=== PATIENT | female | born 1965 | race Caucasian/White ===

== ENCOUNTER 2019-12-12 00:08 | Outpatient (CLI) | payer OTHER, SELFPAY ==
[2019-12-12 19:29] LABS: SARS-CoV-2 RNA PCR Negative
== END 2019-12-12 00:09 | disposition home or self-care (01) ==
LOC: ANHCOVIDDT 00:09
PROVIDERS: PCP Family Medicine Sports Medicine; Visit Provider Internal Medicine Gastroenterology
DX: Z01.812 Encounter for preprocedural laboratory examination (principal); Z20.828 Contact with and (suspected) exposure to other viral communicable diseases
CPT/HCPCS: 87635; C9803; U0003

== ENCOUNTER 2019-12-15 00:47 | Day surgery (SDC) | payer OTHER, SELFPAY ==
[2019-11-12 14:15] VITALS: BMI 25.4
[2019-12-15 06:50] VITALS: BP 126/81; PULSE 90; RESP 20; TEMP 36.9; O2SAT 99
[2019-12-15] MEDS: LACTATED RINGERS 1,000 ML 150 ML IV CONT (06:59)
--- NOTE | 2019-12-15 07:15 | WPDANESEPPF ---
Anes - Initial Pre Proc Eval Procedure: Operation Date: 12/15/19 08:00 Proposed Procedures p Screening Colonoscopy - Jonathan Buchanan MD Date/Time: 12/15/19 07:15 Surgeon: Jonathan Buchanan MD Pre Op Diagnosis: Neoplasm Screening Patient Data Age: 54 Gender: F Height: 5 ft 3 in Weight: 63.3 kg Last Vital Signs Temp 98.4 F 12/15/19 06:50 Pulse 90 12/15/19 06:50 Resp 20 12/15/19 06:50 BP 126/81 12/15/19 06:50 Pulse Ox 99 12/15/19 06:50 Allergies Allergy/AdvReac Type Severity Reaction Status Date / Time No Known Allergies Allergy Unknown Verified 12/15/19 06:48 Home Medications Medication Instructions Recorded Confirmed Type hydrochlorothiazide 12.5 mg PO DAILY 11/12/19 11/12/19 History lisinopril 10 mg PO DAILY 11/12/19 11/12/19 History psyllium husk (with sugar) [Daily 1 tbsp PO DAILY 11/12/19 11/12/19 History Fiber (psyllium-sucrose)] Patient hx anesthesia problems: none Family hx anesthesia problems: none PMFSH Past Medical History Medical History (Updated 12/15/19 @ 07:15 by Bandar Lynch MD) Hypertension Family History Family History (Updated 12/17/13 @ 07:13 by DOCTOR UNKNOWN) Father Hypertension Cerebrovascular accident Social History Social History Smoking status: Never smoker Alcohol intake: current Anes - Eval Final PreProcedure Day of Procedure 12/15/19 07:15 Patient weight: normal Heart: regular rate and rhythm Lungs: clear to auscultation Airway: Mallampati scale class II Neurological: alert and oriented Last oral intake: >/= 8 hours ASA classification: II Emergent: no Anesthetic plan: proceed Anesthesia type and monitoring: general GIVS and standard monitoring Informed Consent: The patient's anesthetic plan and its attendant risks and benefits were discussed with the patient/family/POA. Questions were solicited and answers provided to the satisfaction of the patient/family/POA.
--- NOTE | 2019-12-15 07:48 | PM.HPGS ---
History of Present Illness History of Present Illness Consent: Risks, benefits, and alternatives have been discussed and questions answered. Patient agrees to proceed with procedure. Chief complaint: Neoplasm Screening Narrative: Shahida Pena is a 54 year old female here for screening colonoscopy, last one about 10 years ago Review of Systems Constitutional: Constitutional: Denies headache(s) and Denies weakness Eyes: Eyes: Denies blurry vision ENT: Reports Normal hearing present, Denies headache(s) and Denies neck pain Cardiovascular: Cardiovascular: Denies chest pain and Denies dyspnea Respiratory: Respiratory: Denies dyspnea Gastrointestinal: Gastrointestinal: Reports no additional gastrointestinal complaints Genitourinary: Genitourinary: Denies dysuria Musculoskeletal: Musculoskeletal: Denies neck pain Integumentary/Breasts: Skin/Breast: Denies dry skin Neurologic: Reports Normal hearing present, Denies headache(s) and Denies weakness Psychiatric: Psychiatric: Denies anxiety Endocrine: Endocrine: Denies change in body appearance Hematologic/Lymphatic: Hematologic/Lymphatic: Denies easy bleeding Allergic/Immunologic: Allergic/Immunologic: Denies urticaria PMFSH Past Medical History Medical History (Updated 12/15/19 @ 07:48 by Jonathan Buchanan MD) Colon cancer screening Hypertension Family History Family History (Updated 12/17/13 @ 07:13 by DOCTOR UNKNOWN) Father Hypertension Cerebrovascular accident Social History Social History Smoking status: Never smoker Alcohol intake: current Meds Home Medications and Allergies Home Medications Medication Instructions Recorded Confirmed Type hydrochlorothiazide 12.5 mg PO DAILY 11/12/19 11/12/19 History lisinopril 10 mg PO DAILY 11/12/19 11/12/19 History psyllium husk (with sugar) [Daily 1 tbsp PO DAILY 11/12/19 11/12/19 History Fiber (psyllium-sucrose)] Allergies Allergy/AdvReac Type Severity Reaction Status Date / Time No Known Allergies Allergy Unknown Verified 12/15/19 06:48 Vital Signs Vital Signs - 24 hr 12/15/19 06:50 Temperature 98.4 F Pulse Rate 90 Respiratory Rate 20 Blood Pressure 126/81 Pulse Oximetry 99 Exam Const: General: comfortable and no acute distress HENMT: General nose exam: Normal nares present Eyes: General: appearance normal, both eyes and all related structures Neck: Neck: no JVD Resp: Auscultation: clear to auscultation bilaterally Cardio: Rate: regular rate Rhythm: regular rhythm GI: Inspection: non-distended GI Palp: Yes Soft to palpation Skin: General skin exam: normal color Neuro: General: gait normal Speech: normal speech Extrem: General: normal to inspection Psych: Mental Status: mental status grossly normal Assessment and Plan Assessment and plan (1) Colon cancer screening: Code(s): Z12.11 - Encounter for screening for malignant neoplasm of colon Status: Acute Assessment and Plan: will proceed with colonoscopy (2) Hypertension: Code(s): I10 - Essential (primary) hypertension Status: Acute
[2019-12-15 08:08] VITALS: BP 80/47; PULSE 76; RESP 15; O2SAT 97
[2019-12-15 08:18] VITALS: BP 80/49; PULSE 78; RESP 19; O2SAT 98
[2019-12-15 08:21] VITALS: BP 102/68; PULSE 70; RESP 14; O2SAT 98
== END 2019-12-15 08:37 | disposition home or self-care (01) ==
PROVIDERS: PCP Family Medicine Sports Medicine; Visit Provider Internal Medicine Gastroenterology
PROC: 0DJD8ZZ Inspection of Lower Intestinal Tract, Via Natural or Artificial Opening Endoscopic (ICD-10-PCS; CPT 45378; principal; 2019-12-15 08:00)
DX: Z12.11 Encounter for screening for malignant neoplasm of colon (principal); K57.30 Diverticulosis of large intestine without perforation or abscess without bleeding; K64.8 Other hemorrhoids; I10 Essential (primary) hypertension
CPT/HCPCS: 45378; J2704; J7120

== ENCOUNTER 2022-03-26 11:00 | Outpatient (CLI) | payer OTHER, SELFPAY ==
--- NOTE | ~2022-03-26 | MM_ITS ---
EXAMINATION: MM screening [facility] BI w oneil HISTORY: Screening mammogram TECHNIQUE: Craniocaudal and mediolateral oblique 3-D tomosynthesis images were obtained and synthetic 2-D images were generated. CAD analysis was submitted and interpreted. COMPARISON: 02/04/2019, 06/08/2016, 02/22/2014 BREAST PARENCHYMAL COMPOSITION: There are scattered areas of fibroglandular density. FINDINGS: No suspicious mass, calcification, or architectural distortion are identified in either yan ast to suggest malignancy. There has been no suspicious interval change. IMPRESSION: 1. No mammographic evidence of malignancy. 2. Recommend routine screening mammography in one year. BI-RADS Category 1: Negative Reviewed, dictated and finalized at location A. HAT LINUX ADMINISTRATOR
== END 2022-03-26 11:01 | disposition home or self-care (01) ==
PROVIDERS: PCP Family Medicine Sports Medicine; Visit Provider Family Medicine Sports Medicine
DX: Z12.31 Encounter for screening mammogram for malignant neoplasm of breast (principal)
CPT/HCPCS: 77063; 77067

== ENCOUNTER 2023-07-12 08:15 | Outpatient (CLI) | payer OTHER, SELFPAY ==
--- NOTE | ~2023-07-12 | MM_ITS ---
EXAMINATION: MM screening [facility] w one[facility] HISTORY: Screening TECHNIQUE: Craniocaudal and mediolateral oblique 3-D tomosynthesis images were obtained and synthetic 2-D images were generated. CAD analysis was submitted and interpreted. COMPARISON: Comparison to multiple prior studies sequentially, with oldest reviewed study dated 06/08. BREAST PARENCHYMAL COMPOSITION: Not dense: There are scattered areas of fibroglandular density. FINDINGS: There is no evidence of suspicious mass, calcification, or architectural distortion to sugg est malignancy in either breast. There has been no suspicious interval change. IMPRESSION: 1. No mammographic evidence of malignancy. 2. Recommend routine screening mammography in one year. BI-RADS Category 1: Negative Reviewed, dictated and finalized at location A.
== END 2023-07-12 08:16 | disposition home or self-care (01) ==
LOC: ANHIMG 08:17
PROVIDERS: PCP Family Medicine; Visit Provider Nurse Practitioner Obstetrics & Gynecology
DX: Z12.31 Encounter for screening mammogram for malignant neoplasm of breast (principal)
CPT/HCPCS: 77063; 77067

== ENCOUNTER 2024-02-12 13:25 | Outpatient (CLI) | payer OTHER, SELFPAY ==
--- NOTE | 2024-02-12 13:30 | ECG_ITS ---
Test Date: 2024-02-12 14:03:24 Measurements Intervals [place] Rate: 97 P: 65 SD: 159 QRS: 39 QRSD: 101 T: 5 QT: 344 QTc: 438 Interpretive Statements SINUS RHYTHM POSSIBLE LEFT ATRIAL ENLARGEMENT [-0.1mV P WAVE IN V1/V2] INCOMPLETE RIGHT BUNDLE BRANCH BLOCK [90+ ms QRS DURATION, TERMINAL R IN V1/V2, 40+ ms S IN I/aVL/V4/V5/V6] MODERATE T-WAVE ABNORMALITY, CONSIDER ANTEROLATERAL ISCHEMIA [-0.1+ mV T WAVE IN V3-V6] No previous ECG available for comparison Electronically Signed On 02-13-2024 09:35:06 CDT by Guido Barrow M.D.
== END 2024-02-12 13:26 | disposition home or self-care (01) ==
PROVIDERS: PCP Family Medicine; Visit Provider Podiatrist Foot & Ankle Surgery
DX: Z01.810 Encounter for preprocedural cardiovascular examination (principal); R94.31 Abnormal electrocardiogram [ECG] [EKG]; I10 Essential (primary) hypertension
CPT/HCPCS: 93005

== ENCOUNTER 2024-02-14 01:07 | Day surgery (SDC) | payer OTHER, SELFPAY ==
[2024-02-07 13:10] VITALS: BMI 25.7
--- NOTE | 2024-02-07 13:15 | PC.NURSE ---
Report to the Outpatient Waiting Room, entrance under the green pavilion located off [facility], at time _0800_ on date _[id number]_. Planned Procedure Time: _1000_.? Time changes happen often and if your time is changed the preop area will call you the afternoon before. - You and your visitor will be asked to self-screen and do not enter if you have any COVID symptoms. Please call surgeon if you need to reschedule. - A mask is optional within the hospital at this time. Patients may have clear liquids (water, carbonated beverages, clear teas, apple juice) until 3 hours prior to surgery with a maximum of 20 ounces. - No food from midnight until time of surgery and no smoking Take only the following medications with a SIP of water on the morning of surgery: ___None____ DO NOT STOP ANY OF YOUR OTHER PRESCRIPTION MEDICATIONS PRIOR TO SURGERY EXCEPT THE FOLLOWING Medications to discontinue per physician ___None Please no make-up, nail telugu, hairspray, perfume, deodorant, or body powder the day of surgery.? No jewelry (including any body piercings) or valuables the day of surgery, leave them at home.? Please take a shower or bath the night before, or the morning of, surgery with an antibacterial soap.? Wear comfortable, loose fitting clothing.? - Jewelry must be removed prior to entering the operating room.? Rings and piercings that are not removed may be cut off. - The hospital will not accept responsibility for valuables.? - Please leave all valuables, including medications, at home the day of surgery. If you are going home after surgery, a licensed garbage collector driver must drive you home.? - NO public transportation without another adult if you receive anesthesia. - We recommend that an adult stay with you for 24 hours following discharge. - We also recommend that you do not drive, make important decision, drink alcoholic beverages, or take any drugs that were not prescribed by your health care provider for at least 24 hours after your discharge time. Follow any additional instructions given to you from your surgeon. Telephone instructions given to _Shahida___and asked if any additional questions and then verbalized understanding. Patient advised to call surgeon office or pre surgery nurse liaison [phone] if any additional questions.
[2024-02-14] VITALS (9 sets, daily range): BP systolic 128–149; BP diastolic 81–91; PULSE 69–87; RESP 14–15; TEMP 36.3–36.8; O2SAT 99–100
--- NOTE | ~2024-02-14 | XR_ITS ---
XR surgery orthopedic Indication: Right first metatarsophalangeal joint arthrodesis TECHNIQUE: Fluoroscopy used during Right first metatarsophalangeal joint arthrodesis performed by Dr You [Pranav Turk Jr., BEV] on 02/14/2024. 17 seconds of fluoroscopy with 2 fluoroscopic images cap tured. FINDINGS: Correlate with procedure note. IMPRESSION: Fluoroscopy used during Right first metatarsophalangeal joint arthrodesis. Reviewed, dictated and finalized at location B. IMPRESSION: Fluoroscopy used during Right first metatarsophalangeal joint arthr odesis.
--- NOTE | 2024-02-14 07:15 | WPDHPUPDATE1 ---
History and Physical Update Update Date/Time: 02/14/24 07:15 History and Physical has been reviewed, including an updated exam of the patient. There are NO changes in the patient's condition. Risks, benefits, and alternatives have been discussed and questions answered. Patient agrees to proceed with procedure.
[2024-02-14] MEDS: LACTATED RINGERS 1,000 ML 30 ML IV CONT ×2 (09:00→11:49)
--- NOTE | 2024-02-14 09:18 | WPDANESEPPF ---
Anes - Initial Pre Proc Eval Procedure: Operation Date: 02/14/24 10:00 Proposed Procedures p Arthrodesis First Metatarsophalangeal Joint Right Foot, - Parnav Turk Jr., DPM Date/Time: 02/14/24 09:18 Surgeon: Pranav Turk Jr., DPM Pre Op Diagnosis: bunion right foot Patient Data Age: 59 Gender: F Height: 1.6 m Weight: 65.9 kg Allergies Allergy/AdvReac Type Severity Reaction Status Date / Time No Known Allergies Allergy Unknown Verified 02/07/24 13:08 Home Medications Medication Instructions Recorded Confirmed Type lisinopril 10 mg tablet 10 mg PO DAILY 11/12/19 02/07/24 History psyllium husk (with sugar) 3 1 tbsp PO DAILY PRN Constipation 11/12/19 02/07/24 History gram/7 gram oral powder (Daily Fiber (psyllium-sucrose)) rosuvastatin 20 mg tablet 20 mg PO DAILY 02/07/24 02/07/24 History Patient hx anesthesia problems: none Family hx anesthesia problems: none Results Review: All pre-operative results and documents have been reviewed as part of the pre-operative evaluation. [facility] Past Medical History Medical History Colon cancer screening Hypertension Family History Family History Father Hypertension Cerebrovascular accident Social History Social History Smoking status: Never smoker Alcohol intake: current Drinks per week: 14 Living arrangements: with family Spiritual care concerns: No Anes - Eval Final PreProcedure Day of Procedure 02/14/24 09:18 Patient weight: normal Heart: regular rate and rhythm Lungs: clear to auscultation Airway: Mallampati scale class II Neurological: alert and oriented Last oral intake: >/= 8 hours ASA classification: II Emergent: no Anesthetic plan: proceed Anesthesia type and monitoring: general LMA and standard monitoring Results Review: All pre-operative results and documents have been reviewed as part of the pre-operative evaluation. Informed Consent: The patient's anesthetic plan and its attendant risks and benefits were discussed with the patient/family/POA. Questions were solicited and answers provided to the satisfaction of the patient/family/POA.
--- NOTE | 2024-02-14 09:18 | WPDANESPNB ---
Anes - Peripheral Nerve Block Date/Time: 02/14/24 09:18 I have discussed with the patient/family/POA the placement of a peripheral nerve block for post-operative pain management, including associated risks, benefits, complications, and side effects. Alternative methods of post-operative analgesia were detailed. Questions were solicited and answers provided to the satisfaction of the patient/family/POA. Time-Out: A pre-procedural Time-Out was completed immediately before starting the procedure and confirmed: Patient Identification, Site, Procedure, Patient Position and the Availability of Requisite Equipment. Clinical Indications: Acute post-operative pain management requested by the operative surgeon. Nerve Block Insertion Note Anes-nerve block: posterior fossa sciatic (and saphenous) right Needle: 22 gauge, stimulating, insulated echogenic needle. Needle length: 80 mm Technique: nerve stimulation lost at (mA) (0.4) Injectate: bupivacaine 0.5% with epi 5 mcg/ml (32cc sciatic 8 cc saphenous) and dexamethasone (mg) (8) Observations: tolerated well Procedure start time:: Procedure end time::
[2024-02-14] MEDS: ceFAZolin 2 GM/D5W 50 ML 2 GM/50 ML BAG IVPB (10:40)
--- NOTE | 2024-02-14 11:54 | P.OP_ITS ---
Procedure Note - Detailed Date of Procedure 02/14/24 Pre-op Diagnosis Arthritic bunion right foot Post-op Diagnosis Same Procedure Performed Arthrodesis of the first metatarsal phalangeal joint right foot Surgeon Pranav Turk Jr., DPM Anesthesia General and Regional Indications Painful right forefoot Findings Articular degeneration to the first metatarsal phalangel joint Description of Procedure PROCEDURE IN DETAIL: Under mild sedation, the patient was brought into the operating room, placed on the operating table in supine position. A pneumatic ankle tourniquet was placed about the patient's ipsilateral ankle. Following general anesthesia and a popliteal fossa block, the foot was then scrubbed, prepped, and draped in the usual aseptic manner. An Esmarch bandage was then used to exsanguinate the patient's foot and the pneumatic ankle tourniquet was then inflated. Surgery began in the following manner: Attention was directed to the dorsal medial aspect of the 1st metatarsophalangeal joint where there was a moderate subcutaneous prominence was noted. The incision was made starting along the central shaft of the 1st metatarsal and extending just proximal to the interphalangeal joint of the hallux. The incision was continued deep down through the subcutaneous tissues using sharp and blunt dissection. All bleeders were cauterized as necessary. At this point, the dissection was continued down to the level of the periosteum and capsular structures overlying the 1st metatarsophalangeal joint. A full length periosteum and capsular incision was made just medial to the extensor hallucis longus tendon. The periosteum and capsular structures were freed from the base of the proximal phalanx as well as the distal 1st metatarsal. At this point, the 1st metatarsophalangeal joint was identified. There was significant loss of articular cartilage to the head of the 1st metatarsal as well as the base of the proximal phalanx worse centrally and medially. There was significant broadening and hypertrophy of the 1st metatarsophalangeal joint. Utilizing a sagittal bone saw, the hypertrophied 1st metatarsal was resected dorsally, medially, and laterally. A power bur was used to make sure that there were no rough edges and also to further debride the hypertrophic 1st metatarsal. Next, a rongeur was used to resect the hypertrophic base of the proximal phalanx. At this point, the reamer system for the Maxforce plaste system was used to denude the degenerative cartilage from the head of the 1st metatarsal as well as the base of the proximal phalanx. The cartilage and subchondral bone were fully debrided utilizing the reamer system until healthy bleeding bone was noted. Next, a 2-0 drill bit was used to further fenestrate the head of the 1st metatarsal as well as the base of the proximal phalanx in order to allow fusion across the 1st metatarsophalangeal joint. Next, a guide wire for a 3.0 PT Cannulated Arthrex compression screw was driven from the medial aspect of the base of the proximal phalanx into the head of the 1st metatarsal in order to serve as temporary fixation, next the cannulated screw was driven and provided excellent compression. Next A large steel plate was used to make sure that the hallux was in a rectus position both in the sagittal plane as well as the frontal plane. Excellent position of the hallux was noted. Next, a Maxforce plate was placed atop the 1st metatarsophalangeal joint held in position with [place] wires. Utilizing standard principles and techniques, the distal drill holes were drilled and three 3.0 mm mm fully-threaded locking screws were driven from dorsal to plantar holding the distal aspect of the plate intact. At this point, the Maxforce compression system was utilized from dorsal distal to proximal plantar across the 1st metatarsophalangeal joint with excellent compression noted. Next, a 3.0mm locking screw was used to further compress the joint along the oblong dynamic compression screw slot. Next, the remaining 2 proximal drill holes were drilled from dorsal to plantar across and two 3.0 mm locking screws were driven form dorsal to plantar. The wound site was then flushed with copious amounts of sterile saline. Fluoroscopy was used to make sure that the plate was appropriately aligned and oriented and also to make sure that the screws were of appropriate length and orientation. Excellent position of the 1st metatarsophalangeal joint was visualized in all planes. Next, the periosteum and capsular structures were reapproximated with 3-0 Vicryl. Next, the subcutaneous structures were reapproximated with 4-0 Vicryl. Next, the skin was reapproximated and coapted utilizing 4-0 Monocryl in running subcuticular suture fashion technique. Upon completion of the procedure, the incision was dressed with Steri-Strips, Adaptic, 4x4s, Kerlix, and Coban. The pneumatic ankle tourniquet was then deflated and a prompt hyperemic response was noted to all digits of the foot. A posterior splint was then applied to the affected lower extremity. It is important to note that Dr. Turk was present throughout the procedure. The patient did very well with the procedure and the anesthesia. The patient was transferred to the recovery room with vital signs stable and vascular status intact to all toes of the foot. Following a period of postoperative monitoring, the patient will be discharged home on the following written and oral postoperative instructions: 1. Keep the dressing clean, dry, and intact. 2. The patient to be strictly nonweightbearing with a knee scooter or crutches. 3. The patient should ice and elevate the foot when at rest. 4. The patient should contact Dr. Turk for all postop care and if any problems should arise. 5. Prescriptions were written for Percocet 5/325, dispensed 40 to be taken 1 p.o. q.4-6 hours as needed for severe pain. Furthermore, the patient should also take Xarelto 10 mg to be taken 1 p.o. daily starting 24 hours after surgery to prevent DVT for 14 days followed by one 325 mg aspirin until walking is re-initiated. Implants Arthrex Petitie Maxforce plate with 3.0 locking screws One Arthrex Pt cannulated 3.0 screw One Arthrex 3.0 Kreulock screw Estimated Blood Loss 1 Drains No Packing No Pathology None sent Complications No immediate complications Condition Stable Disposition Same day
== END 2024-02-14 13:42 | disposition home or self-care (01) ==
PROVIDERS: PCP Family Medicine; Visit Provider Podiatrist Foot & Ankle Surgery
PROC: (CPT 28750; principal; 2024-02-14 10:00)
DX: M21.611 Bunion of right foot (principal); M20.11 Hallux valgus (acquired), right foot; M19.071 Primary osteoarthritis, right ankle and foot; I10 Essential (primary) hypertension; Z82.49 Family history of ischemic heart disease and other diseases of the circulatory system
CPT/HCPCS: 64450; 64445; 28750; 99199; C1713; C1769; J0690; J1100; J2003; J2250; J2405; J2704; J3010; J7120

== ENCOUNTER 2024-08-19 13:38 | Outpatient (CLI) | payer OTHER, SELFPAY ==
--- NOTE | ~2024-08-19 | MM_ITS ---
EXAMINATION: MM screening [facility] w one[facility] HISTORY: Screening TECHNIQUE: Craniocaudal and mediolateral oblique 3-D tomosynthesis images were obtained and synthetic 2-D images were generated. CAD analysis was submitted and interpreted. COMPARISON: Comparison to multiple prior studies sequentially, with oldest reviewed study dated 06/08. BREAST PARENCHYMAL COMPOSITION: Not dense: There are scattered areas of fibroglandular density. FINDINGS: There is no evidence of suspicious mass, calcification, or architectural distortion to sugg est malignancy in either breast. There has been no suspicious interval change. IMPRESSION: 1. No mammographic evidence of malignancy. 2. Recommend routine screening mammography in one year. BI-RADS Category 1: Negative Reviewed, dictated and finalized at location A.
--- OUTSIDE RECORDS SUMMARY | 2024-08-19 14:30 | XMS_ITS | Encounter Summary ---
Author Organization [facility] Address [address] [place] [address] Care Team Providers Care Field Marketer Name Role Phone All Yates MD Primary Care Provider [phone] Encounter Details Date Type Department Care Team (Late Contact Info) Description 01/01/2023 Abstract [facility] [address] [place] [address] Wesley Clemens MA Social History Tobacco Use Types Packs/Day Years Used Date Smoking Tobacco: Never Smokeless Tobacco: Never Alcohol Use Standard Drinks/Week Comments Yes 4 (1 standard drink = 0.6 oz pur e alcohol) Comments Unknown Sex and Gender Information Value Date Recorded Sex Assigned at Not on file Legal Sex Female 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 Gender Identity Not on file Sexual Orientation Not on file 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 Not on file Not on cyndy e documented as of this encounter Plan of Treatment Upcoming Encounters Date Type Department Care Team (Late st Contact Info) Description 12/07/2024 12:45 PM CDT Office Visit [facility] [address] [place] [address] Sai Jarquin MD [facility], [address] [place] [address] documented as of this encounter Procedures Procedure Name Priority Date/Time Associated Diagnosis Comments LIPID PANEL Routine 12/31/2022 THYROID STIM HORMONE TSH Routine 12/31/2022 documented in this encounter Results * LIPID PANEL (12/31/2022) CHOLESTEROL 155 TRIGLYCERIDES 113 HDL 58 LDL (CALCULATED) 77 NON HDL CHOLESTEROL 97 Narrative Resulting Agency Comment us Default History Genericprovider LABORATORY Edited Result - Final * THYROID STIM HORMONE, TSH (12/31/2022) Pathologist [facility] TSH 3.39 Narrative Resulting Agency Comment us Default History Genericprovider LABORATORY Edited Result - Final documented in this encounter Visit Diagnoses Not on filedocumented in this encounter Care Teams Field Marketer Relationship Specialty Start Date End Date All Yates MD [address] [place] [address] PCP - General [facility]ILY [facility] SPORTS MEDICINE 07/05/22 documented as of this encounter
--- OUTSIDE RECORDS SUMMARY | 2024-08-19 14:30 | XMS_ITS | Clinical Summary ---
Author Organization [facility] Address [address] [place] [address] Care Team Providers Care Correspondence School Teacher Name Role Phone All Yates MD Primary Care Provider [phone] Allergies No known active allergies Medications lisinopril (PRINIVIL) 10 MG tablet Take 1 tablet (10 mg total) by mouth daily. Active ANUCORT-HC [address] 1 suppository (25 mg total) rectally daily. 08/28/19 23 Active rosuvastatin (CRESTOR) 20 MG tabletIndications: Family history of sudden cardiac ,Mixed hyperlipidemia Take 1 tablet (20 mg total) by mouth nightly at bedtime. 90 tablet 3 11/25/19 24 Active Active Problems Problem Noted Date Diagnosed Date Primary hypertension 11/25/2023 Dyslipidemia 11/25/2023 Immunizations Immunization Administration Dates Next Due PFIZER COVID-19 (ORIGINAL FO RMULATION, PURPLE CAP) mRNA, LNP-S, PF, 30 MCG/0.3 ML DOSE 07/02/2020,06/11/2020 Family History Medical History Relation Comments Hyperlipidemia Brother 1 Hypertension Brother 1 Kidney Stones Brother 1 Coronary artery disease Brother 2 Heart Attack Brother 2 Hyperlipidemia Brother 2 Hypertension Brother 2 Smoker Brother 2 Stent Cardiac Brother 2 Hyperlipidemia Father Hypertension Father Kidney Stones Father Pacemaker Father Heart Block-unkn own type Stroke Father Heart Attack Mother Stroke Paternal Grandfather Hyperlipidemia Sister 1 Hypertension Sister 1 Hypertension Sister 2 Thyroid Disease Sister 2 Relation Status Comments Brother 1 Alive Brother 2 Alive Father (Age 92) Maternal Grandfather Maternal Grandmother Mother (Age 59) Paternal Grandfather Paternal Grandmother Sister 1 Alive Sister 2 Alive Social History Tobacco Use Types Packs/Day Years Used Date Smoking Tobacco: Never Smokeless Tobacco: Never Alcohol Use Standard Drinks/Week Comments Yes 4 (1 standard drink = 0.6 oz pur e alcohol) Comments Unknown Sex and Gender Information Value Date Recorded Sex Assigned at Not on file 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 Gender Identity Not on file Sexual Orientation Not on file 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 Not on file Not on cyndy e Last Filed Vital Signs Vital Sign Reading Time Taken Comments Blood Pressure 124/68 11/25/2023 12:48 PM CDT Pulse 87 11/25/2023 12:48 PM CDT Temperature - - Respiratory Rate - - Oxygen Saturation 97% 11/25/2023 12:48 PM CDT Inhaled Oxygen Concentration - - Weight 66.2 kg (146 lb) 11/25/2023 12:48 PM CDT Height 160 cm (5' 3 ) 11/25/2023 12:48 PM CDT Body Mass Index 25.86 11/25/2023 12:48 PM CDT Plan of Treatment Upcoming Encounters Date Type Department Care Team (Late st Contact Info) Description 12/07/2024 12:45 PM CDT Office Visit [facility] [address] [address] [place] [address] Sai Jarquin MD [facility], [address] [place], [place] [id number] Health Maintenance Due Date Last Done Comments Colorectal Cancer Screening Colonoscopy (10 Years) 1963 Annual Physical 1966 Hepatitis C 1981 DTaP, Tdap and Td Vaccines ( 1 - Tdap) 1982 Cervical Cancer Screening Pa p with HPV Testing (Age 30 to 64) Every 5 Years 1993 Mammogram Screening 2003 Pneumococcal Vaccine: 50+ Years (1 of 1 - PCV) 2013 COVID-19 Vaccine (2023-2 5 season) 2023 07/02/2020, 06/11/2020 Cervical Cancer Screening Pa p Smear (Age 30 to 64) Every 3 Years 06/06/2026 06/06/2023 Cervical Cancer Screening wi th HPV 06/06/2026 RSV Immunization or 60+ Years (1 - 1-dose 75+ series) 2038 Zoster Vaccines Completed 11/25/2020, 09/07/2020 Meningococcal B Vaccine Aged Out No l onger eligible based on patient's age to complete this topic Meningococcal Vaccine Aged Out No imani shahab eligible based on patient's age to complete this topic RSV Immunizations Under 20 Months Aged Out No longer eligible b ased on patient's age to complete this topic Insurance Care Teams Correspondence School Teacher Relationship Specialty Start Date End Date All Yates MD [address] [place] [address] PCP - General FAMILY MEDICINE SPORTS MEDICINE 07/05/22
--- OUTSIDE RECORDS SUMMARY | 2024-08-19 14:30 | XMS_ITS | Continuity of Care Document ---
Author Name [facility] Organization [facility] Care Team Providers Care Implementation Analyst Name Role Phone [facility] Unavailable Unavailable Medications Combined list of outpatient medications from Department of Defense and Veterans Affairs facilities.Medications provided include 1) outpatient medications from the last 15 months, and 2) patient-reported medications. Medication Details Route Status Patient Instructions Prescription Expires Prescription Number Last Dispense Date Ordering Provider Order Date Order Qty Source lisinopril 10 mg tablet See Instruct ions, # 90 EA, 1 total refill(s ), Hard Stop Discont inued 01/03/2024 4 2023 90.0 Ambulat ory Pharmac y lisinopril 10 mg tablet See Instruct ions, # 90 EA, 1 total refill(s ), Hard Stop Ordered 12/31/2024 4 2023 90.0 Ambulat ory Pharmac y lisinopril 10 mg tablet See Instruct ions, # 30 EA, 1 total refill(s ), Acute Complet ed 04/01/2023 3 2022 30.0 Ambulat ory Pharmac y lisinopril 10 mg tablet 10 mg, See Instruct ions, Oral, Daily, # 90 EA, 1 total refill(s ), Hard Stop Oral (given by mouth) Discont inued 06/04/2023 3 2023 90.0 Ambulat ory Pharmac y METHYLPREDN ISOLONE (methylpred nisolone), 4 MG, TAB DS PK, ORAL, ProtonMail, 21 ea. DOSE-PACK Active [id number] 2023 21 Pharmac y Data Transac tion Service Facilit y PREDNISONE (prednisone ), 20 MG, TABLET, ORAL, NOVITIUM/AN I PH, 500 ea. BOTTLE Active [id number] : 2023 5 Pharmac y Data Transac tion Service Facilit y rosuvastati n 20 mg tablet See Instruct ions, # 90 EA, 3 total refill(s ), Hard Stop Ordered 11/24/2024 4 2023 90.0 Ambulat ory Pharmac y rosuvastati n 20 mg tablet See dose instruct ions in comments , # 90 EA, 3 total refill(s ), Acute Complet ed 09/09/2023 3 2023 90.0 Ambulat ory Pharmac y TRIAMCINOLO NE ACETONIDE (TRIAMCINOL ONE ACETONIDE), 0.1%, CREAM(GM), TOPICAL, [facility] 15 g TUBE Active [id number] 4 2023 45 Pharmac y Data Transac tion Service Facilit y zolpidem 10 mg tablet See Instruct ions, # 30 EA, 0 total refill(s ), Hard Stop Complet ed 12/28/2023 4 2023 30.0 Ambulat ory Pharmac y Immunizations Combined list of available immunizations from the Department of Defense and Veterans Affairs facilities. Immunization Series Date Given Administered By Site Reaction Lot Number CVX Code Drug Supply Controller Status Comments Source influenza, injectable, quadrivalent- pf [id number] [employer] complet ed influenza , injectabl e, quadrival ent-pf 04/05/22 Given Ambulat ory Pharmac y Influenza, injectable, quadrivalent, preservative free 1 2021 Unknown, Provider [id number] 150 [facility] ([facility]) complet ed Influenza , injectabl e, quadrival ent, preservat lenore free DoD COVID-19, mRNA, LNP-S, PF, 30 mcg/0.3 mL dose 2020 ALUL, () Not Given COVID-19, mRNA, LNP-S, PF, 30 mcg/0.3 mL dose DoD influenza, injectable, quadrivalent- pf 2020 zzRig Arm [id number] 150 [employer] complet ed influenza , injectabl e, quadrival ent-pf 02/02/21 Given Ambulat ory Pharmac y Influenza, injectable, quadrivalent, preservative free 1 2020 Unknown, Provider [id number] 150 [employer] ([facility]) complet ed Influenza , injectabl e, quadrival ent, preservat lenore free DoD zoster vaccine, inactivated 2020 zzLef t Arm [id number] 187 [employer] complet ed zoster vaccine, inactivat ed 11/25/20 Given Ambulat ory Pharmac y zoster vaccine recombinant 1 2020 Unknown, Provider [id number] 187 [employer] ([facility]) complet ed zoster vaccine recombina nt DoD zoster vaccine, inactivated 2020 zzLef t Arm [id number] 187 [employer] complet ed zoster vaccine, inactivat ed 09/07/20 Given Ambulat ory Pharmac y zoster vaccine recombinant 1 2020 Unknown, Provider [id number] 187 [employer] ([facility]) complet ed zoster vaccine recombina nt DoD Procedures Combined list of: 1) Procedures from Department of Veterans Affairs facilities going back up to thelast 18 months, not all [place] non-surgical procedures are included; 2) All procedures from the Department of Defense facilities. Procedure Procedure Type Code Date Perfomer Comments Sourc e No data available for this section Ambulatory P harmacy Social History Combined list of available smoking, tobacco, and other social history from Department of Defense and Veterans Affairs facilities. Social History Type Response Date Comment Sourc e This section is an empty social history section. DoD Assessment and Plan Combined list of future care activities from Department of Defense and Veterans Affairs facilities (e.g., assessment and plan notes, appointments, orders, and referrals). Additional future care activities may be listed in the Plan of Care section. Result Assessment and Plan Date Source Assessment and Plan No data available for this section 08/19/2024 Ambulatory Pharmacy Functional Status Combined list of recent functional and cognitive assessments recorded at [facility] Defense and [facility] ([place] Functional [place] Measurement (FIM) Scale: 1 = Total Assistance (Subject = 0% +), 2 = Maximal Assistance (Subject = 25% +), 3 = Moderate Assistance (Subject = 50% +), 4 = Minimal Assistance (Subject = 75% +), 5 = Supervision, 6 = Modified [place] (Device), 7 = Complete [place] (Timely, Safely). Assessment Date/Time Source Assessment Type Assessment Skill Assessment Score Assessment Details No data available for this section
== END 2024-08-19 13:39 | disposition home or self-care (01) ==
LOC: ANHIMG 13:39
PROVIDERS: PCP Family Medicine; Visit Provider Nurse Practitioner
DX: Z12.31 Encounter for screening mammogram for malignant neoplasm of breast (principal)
CPT/HCPCS: 77063; 77067